=== PATIENT | female | born 1955 | race American Indian/Alaskan Native ===

== ENCOUNTER 2017-12-05 07:26 | Day surgery (SDC) | payer BC ==
[2017-12-05] MEDS ORDERED: NACL BACTERIOSTATIC INFILTRATI ONE (09:03)
--- NOTE | 2017-12-05 09:31 | Anesthesia Consultation ---
Anesthesia Consult and Med Hx - Airway Anesthetic Teeth Evaluation: Good ROM Head & Neck: Adequate Mental/Hyoid Distance: Adequate Mallampati Class: Class II Intubation Access Assessment: Probably Good - Pulmonary Exam CTA: Yes - Cardiac Exam Cardiac Exam: RRR - Pre-Operative Health Status ASA Pre-Surgery Classification: ASA3 Proposed Anesthetic Plan: MAC - Pulmonary Hx Smoking: No Hx Sleep Apnea: No (Hx of snoring) - Cardiovascular System Hx Hypertension: Yes (3 YEARS) - Central Nervous System Hx Psychiatric Problems: No - Other Systems Hx Alcohol Use: No Hx Substance Use: No Hx Cancer: Yes
--- NOTE | 2017-12-05 09:32 | Anesthesia Day of Surgery ---
Anesthesia Day of Surgery - Day of Surgery Patient Examined: Yes Patient H&P Reviewed: Yes Patient is NPO: Yes Beta Blockers: Yes Cardiac Clearance: Yes Pulmonary Clearance: Yes
[2017-12-05] MEDS ORDERED: ANCEF/STERILE WATER 2 GM/20 ML IV NR (10:00)
[2017-12-05] MEDS ORDERED: LACTATED RINGERS 1,000 ML IV SCH (10:00)
[2017-12-05] MEDS ORDERED: NACL 0.9% 100 ML ONE (11:50)
[2017-12-05] MEDS ORDERED: MARCAINE 0.25% INFILTRATI ONE ×4 (11:50→12:30)
[2017-12-05] MEDS ORDERED: HEPARIN 10,000 UNITS/10 ML ONE (11:50)
[2017-12-05] MEDS ORDERED: XYLOCAINE 1% 20 mL ONE (11:50)
[2017-12-05] MEDS ORDERED: XYLOCAINE MPF 2% ONE (11:55)
[2017-12-05] MEDS ORDERED: DIPRIVAN 10 MG/ML IV ONE ×2 (11:56→12:26)
[2017-12-05] MEDS ORDERED: VERSED ONE (11:57)
[2017-12-05] MEDS ORDERED: DILAUDID ONE (12:01)
[2017-12-05] MEDS ORDERED: XYLOCAINE 1% 20 mL INFILTRATI ONE ×3 (12:30)
[2017-12-05] MEDS ORDERED: NACL 0.9% IV ONE (12:35)
[2017-12-05] MEDS ORDERED: HEPARIN 10,000 UNITS/10 ML IV ONE ×2 (12:35→13:08)
--- NOTE | 2017-12-05 13:35 | Short Stay Summary ---
Short Stay Documentation Date of service: 12/05/17 Narrative H&P: 62 yo F referred by Dr. Case for L breast ca with positive axillary lymph node. She sees Dr. Reardon for oncology and is due to start chemotherapy in 1 week. She is here for a port placement. - History Principal diagnosis: left breast cancer H&P: obtained from office - Allergies and Medications Current Medications: Allergies No Known Allergies Allergy (Verified 12/04/17 10:51) Home Medications Medication Instructions Recorded Confirmed Last Taken Type Amlodipine Besylate [Norvasc] 10 mg PO DAILY 12/04/17 12/05/17 12/04/17 History Apixaban [Eliquis] 5 mg PO BID 12/04/17 12/05/17 12/02/17 History Carvedilol [Coreg] 25 mg PO BID 12/04/17 12/05/17 12/04/17 History Active Medications Lactated Ringer's (Lactated Ringers) 1,000 mls @ 42 mls/hr IV DIRECT ROGER Last Admin: 12/05/17 09:58 Dose: 42 mls/hr - Brief post op/procedure progress note Date of procedure: 12/05/17 Pre-op diagnosis: left breast cancer Post-op diagnosis: same Procedure: R IJ port a cath placement with ultrasound guidance Anesthesia: MAC, local Findings: good placement of port on post op CXR, no PTX Surgeon: ABIEL EL Estimated blood loss: minimal Pathology: none Condition: stable - Hospital course Hospital course: The patient was observed in the recovery room and discharged to home in stable condition once criteria met. - Disposition Condition at discharge: Good Disposition: DC-01 TO HOME OR SELFCARE Short Stay Discharge Plan Activity: no restrictions Diet: regular Wound: open to air, other (May shower tomorrow, pat incisions dry, do not scrub. Do not submerge incisions in pools, hottubs, baths.) Additional Instructions: Call Surgeon's office if you have temp >100.4, pain not controlled with pain medications, bleeding or drainage from incisions. Start Eliquis on 12/07/[address] El in 2 weeks, MondayDec 19 at [facility] office (call for appointment) Follow up with: JUAN FRANCISCO BARNES MD [Primary Care Provider] - 7 Days TOSHA LAINEZ MD [Staff Physician] - 7 Days ADAMS CASE MD [Staff Physician] - 7 Days ABIEL EL DO [Staff Physician] - 14 Days Prescriptions: HYDROcodone/ACETAMINOPHEN [[place] 5-325 Tablet] 1 each PO Q6H PRN #20 tablet PRN Reason: Pain
--- NOTE | 2017-12-05 14:00 | Fluoroscopy Report ---
AP CHEST: HISTORY: [id number] insertion A right IJ [id number]-Tmbm has been inserted which terminates at the cavoatrial junction. AP view of the chest demonstrates a normal mediastinal and cardiac contour with clear lungs and normal bony and soft tissue structures. IMPRESSION: Unremarkable AP chest. [id number] placement as described. No pneumothorax.
[2017-12-05 14:27] VITALS: BP 158/91
--- NOTE | 2017-12-05 14:49 | Operative Report ---
Operative Report Operative Report: Date of operation: 12/05/17 Preoperative diagnosis: Left breast cancer Postoperative diagnosis: Same as above Procedure performed: Placement of right internal jugular Port-A-Cath Surgeon: Yoan Ramirez DO Anesthesia: MAC, local Findings: On intraoperative CXR - good placement of port and no PTX EBL: <10cc Complications: none Disposition: stable to PACU HPI and indication: Patient is a 62-year-old -Greek female who was diagnosed with left-sided breast cancer with positive lymph node by Dr. Case.. The patient is seen by Dr. Galss-olive and deemed a candidate for chemotherapy. All of the risks associated with the procedure were discussed with the patient including but not limited to pneumothorax, infection, bleeding , malpositioned port, injury to other structures. The patient understands and all questions were answered. Consent was signed and placed on chart. Procedure in detail: The patient was identified in the preoperative area, taken back to operating room, placed on operating table in supine position. After anesthesia was induced both arms were tucked and upper chest and neck were prepped and draped in usual sterile fashion. A timeout was performed. The was placed in Trendelenburg position. Local anesthetic was infiltrated into the skin at the intended puncture site. The right internal jugular vein was visualized using the ultrasound was then accessed on the first stick. There was return of dark red, nonpulsatile blood. The wire was threaded under fluoroscopy without resistance and positioning confirmed. The needle was then removed. Using a 15 blade, an incision was made in the right upper chest and dissection carried down through the skin and subcutaneous tissue using Bovie electrocautery. Hemostasis was achieved along the way. A pocket for the port was then created bluntly. The catheter was flushed and tunneled from the pocket to the wire. A breakaway catheter/dilator sheath then inserted over the wire under fluoroscopy, and the wire and dilator removed. The catheter was then inserted through the breakaway catheter which was then removed. The catheter sat flush under the skin. Using continuous fluoroscopy, the catheter was pulled back until the tip was visualized in the right atrium. The catheter was then cut to size and the port attached in the usual fashion. The port was then sutured into place using 2-0 Vicryl interrupted sutures. The wound was irrigated and hemostasis ensured. The port was tested with heparinized saline and there was return of blood and it flushed easily. The port was then instilled with 3000 units of straight heparin. The deep dermal layer was then closed with interrupted 3-0 Vicryl stitches. The skin incisions were closed with 4-0 Monocryl subcuticular stitches and skin glue. Intraoperative chest x-ray did show good positioning of the port, without evidence of pneumothorax At the end of the case, all sponge, instrument, sharp counts were correct 2. The patient was awoken from anesthesia and taken to PACU in stable condition.
== END 2017-12-05 07:27 | disposition home or self-care (01) ==
LOC: OR 07:26
PROVIDERS: ATTEND Surgery
DX: C50.912 Malignant neoplasm of unspecified site of left female breast (principal); I10 Essential (primary) hypertension; M17.0 Bilateral primary osteoarthritis of knee; Z98.890 Other specified postprocedural states; Z68.35 Body mass index [BMI] 35.0-35.9, adult; E66.01 Morbid (severe) obesity due to excess calories
CPT/HCPCS: 36561; 77001; C1788; J0690; J1170; J1644; J2250; J2704; J7120

== ENCOUNTER 2018-05-22 09:14 | Outpatient (CLI) | payer BC ==
--- NOTE | 2018-05-22 12:06 | Mammography Report ---
LEFT DIGITAL DIAGNOSTIC MAMMOGRAM : 05/22/18 09:14:00 CLINICAL: Followup left breast cancer after chemotherapy. The cancer was diagnosed in a left axillary lymph node with an otherwise negative left breast. COMPARISON:11/03/17 FINDINGS: The breast is almost entirely fatty.No mass, architectural distortion or suspicious calcifications. Previously enlarged left axillary lymph nodes have decreased significantly in size. A lymph node with an adjacent biopsy clip measures 1.8 cm and it measured at least 2.8 cm on the last exam. IMPRESSION: Positive response to therapy with decrease size of left axillary lymph nodes. The left breast remains otherwise negative. BI-RADS CATEGORY: 6--Known Cancer RECOMMENDATION: Bilateral mammogram in six months when she is due for screening of the right breast.. ACR BI-RADS MAMMOGRAPHIC CODES: 0 = Needs additional imaging evaluation; 1 = Negative; 2 = Benign; 3 = Probably benign; 4 = Suspicious; 5 = Malignant; 6 = Known biopsy-proven malignancy COMMENT: 1. Dense breast tissue, i.e., adenosis, fibrocystic changes, etc., may obscure an underlying neoplasm. 2. Approximately 10% of cancers are not detected with mammography. 3. A negative mammography report should not delay biopsy if a clinically suspicious mass is present. COMMENT: Patient follow-up letters are generated by our [employer] application.
== END 2018-05-22 09:15 | disposition home or self-care (01) ==
LOC: SPVWC 09:14
PROVIDERS: ATTEND Surgery
DX: C50.912 Malignant neoplasm of unspecified site of left female breast (principal); G47.30 Sleep apnea, unspecified; I10 Essential (primary) hypertension; M19.90 Unspecified osteoarthritis, unspecified site

== ENCOUNTER 2018-06-06 08:00 | Inpatient (IN) | payer BC ==
[~2018-06-06 08:00] MED LIST: LACTATED RINGERS 1,000 ML IV SCH; NACL 0.9% IR ONE; NEURONTIN PO NR; VERSED IV NR
[2018-06-06] MEDS ORDERED: DILAUDID IV PRN ×4 (09:11→20:00)
[2018-06-06] MEDS ORDERED: ZOFRAN IV PRN ×3 (09:11→19:19)
--- NOTE | 2018-06-06 09:11 | Anesthesia Day of Surgery ---
Anesthesia Day of Surgery - Day of Surgery Patient Examined: Yes Patient H&P Reviewed: Yes Patient is NPO: Yes
--- NOTE | 2018-06-06 09:11 | Anesthesia Consultation ---
Anesthesia Consult and Med Hx Date of service: 06/06/18 - Airway Anesthetic Teeth Evaluation: Good, Edentulous ROM Head & Neck: Adequate Mental/Hyoid Distance: Adequate Mallampati Class: Class II Intubation Access Assessment: Probably Good - Pulmonary Exam CTA: Yes - Cardiac Exam Cardiac Exam: RRR - Pre-Operative Health Status ASA Pre-Surgery Classification: ASA2 Proposed Anesthetic Plan: General - Pulmonary Hx Smoking: No Hx Sleep Apnea: No (Hx of snoring) - Cardiovascular System Hx Hypertension: Yes (3 YEARS) - Central Nervous System Hx Psychiatric Problems: No - Other Systems Hx Alcohol Use: No Hx Substance Use: No Hx Cancer: Yes
[2018-06-06] MEDS ORDERED: SUBLIMAZE ONE ×2 (09:52→19:01)
[2018-06-06] MEDS ORDERED: MARCAINE 0.5% 60 ML INFILTRATI ONE (09:53)
[2018-06-06] MEDS ORDERED: XYLOCAINE MPF 2% ONE (10:50)
[2018-06-06] MEDS ORDERED: DILAUDID ONE ×2 (10:50→20:02)
[2018-06-06] MEDS ORDERED: ZEMURON IV ONE (10:50)
[2018-06-06] MEDS ORDERED: DIPRIVAN 10 MG/ML IV ONE (10:51)
[2018-06-06] MEDS ORDERED: LACTATED RINGERS 1,000 ML IV SCH (11:00)
--- NOTE | 2018-06-06 12:14 | History and Physical Report ---
History of Present Illness Date of examination: 06/06/18 Chief complaint: Left breast cancer History of present illness: 62 year old female presents with referral from breast surgery for reconstruction after planned bilateral mastectomy. She has multiple medical comorbities to consider which will affect her reconstructive choice. The patient desires bilateral mastectomy and bilateral reconstruction. Past History Past Medical History: cancer, DVT, hypertension, other (abdominal aortic aneurysm) Social history: lives with family, full code Family history: diabetes, hypertension Medications and Allergies Allergies Allergy/AdvReac Type Severity Reaction Status Date / Time No Known Allergies Allergy Verified 06/01/18 14:56 Home Medications Medication Instructions Recorded Confirmed Last Taken Type Amlodipine Besylate [Norvasc] 10 mg PO DAILY 12/04/17 06/01/18 12/04/17 History Apixaban [Eliquis] 5 mg PO BID 12/04/17 06/01/18 12/02/17 History Carvedilol [Coreg] 25 mg PO BID 12/04/17 06/01/18 12/04/17 History HYDROcodone/ACETAMINOPHEN [[place] 1 each PO Q6H PRN #20 tablet 12/05/17 06/01/18 Unknown Rx 5-325 Tablet] Gabapentin [Neurontin] 300 mg PO Q8HR 06/01/18 06/01/18 Unknown History Active Meds: Active Medications Celecoxib (Celebrex) 200 mg PO PREOP NR Stop: 06/06/18 19:00 Gabapentin (Neurontin) 300 mg PO PREOP NR Stop: 06/06/18 19:00 Hydromorphone HCl (Dilaudid) 0.5 mg IV Q10MIN PRN PRN Reason: Pain , Severe (7-10) Stop: 06/06/18 14:00 Lactated Ringer's (Lactated Ringers) 1,000 mls @ 150 mls/hr IV DIRECT ROGER Midazolam HCl (Versed) 2 mg IV PREOP NR Stop: 06/06/18 23:59 Ondansetron HCl (Zofran) 4 mg IV ONCE PRN PRN Reason: Nausea And Vomiting Stop: 06/06/18 13:00 Review of Systems All systems: negative - Constitutional chronic pain - Breasts left: other (Left breast cancer) Exam - General physical appearance Positive: well developed, no distress, obese - Eyes Positive: other (Right eye subconjunctival hemorrhage, stable.) - ENT Positive: normal pinna, normal nares, normal mucosa - Neck Positive: no masses - Respiratory Positive: normal respiratory effort - Cardiovascular Rhythm: regular Heart Sounds: Present: S1 & S2 - Extremities Extremities: no ischemia Extremity abnormal: edema Peripheral Pulses: within normal limits - Breasts Breasts: other (Bilateral macromastia) - Abdomen Abdomen: Present: soft, distended Hernia: other (Not palpable) - Genitourinary Female Genitourinary: deferred - Integumentary no rash - Neurologic Neurologic: alert and oriented to time, place and person, motor strength and sensation are grossly intact - Musculoskeletal other (Walks with a walker.) - Psychiatric Psychiatric: appropriate mood/affect Assessment and Plan 62 year old female with left breast cancer planned for bilateral mastectomy with left SLN Biopsy. Plan also for bilateral immediate reconstruction with tissue applications systems engineer and Flex HD placement. Admit for overnight observation. Home medications reviewed, patient reports that she has stopped Eliquis and is not taking any blood thinner. - Patient Problems (1) Breast cancer, left breast Current Visit: Yes Status: Acute Qualifiers: Patient sex: female
[2018-06-06] MEDS ORDERED: METHYLENE BLUE ONE (12:49)
[2018-06-06] MEDS ORDERED: NEOSPORIN GU IR ONE ×3 (12:55→15:41)
[2018-06-06] MEDS ORDERED: ANCEF ONE ×2 (12:55→18:23)
[2018-06-06] MEDS ORDERED: GARAMYCIN ONE ×2 (12:55→15:40)
[2018-06-06] MEDS ORDERED: ANCEF/STERILE WATER 2 GM/20 ML 2 GM/20 ML SYRINGE IV NR (13:00)
[2018-06-06] MEDS ORDERED: ePHEDrine 50 MG/5 ML-0.9% NACL IV ONE (13:10)
--- NOTE | 2018-06-06 13:21 | Operative Report ---
Operative Report Operative Report: Date of Service: June 06, 2018 Preoperative diagnosis: Left breast cancer of unknown primary origin with left axillary willy metastasis Postoperative diagnosis: Same Procedure: Right total mastectomy and left total mastectomy with sentinel lymph node biopsy Surgeon: Karla Case M.D. Asst.: Ashanti Dai MD Anesthesia: Gen. Findings: 3 sentinel lymph nodes identified and negative for malignancy on frozen section of pathology Complications: None Drains: per Plastic Surgery Estimated blood loss: Minimal Disposition: PACU in good condition Indications for operative procedure: This is a 62-year-old lady with left breast cancer of unknown primary origin with left axillary willy metastasis, triple negative with breast primary. She was started on neoadjuvant chemotherapy and completed AC and partially completed Taxol. Medical oncology's recommendations to proceed with surgery given patient was not tolerating chemotherapy. She has a known AAA and cleared by vascular surgery to do breast surgery first, vascular surgery will not operate on known breast cancer until treated. PET prior to chemotherapy with left axillary willy metastasis and follow-up PET with no abnormal appearing axillary lymph nodes. At diagnosis, no primary breast cancer found except for left axillary willy involvement. Patient diagnosed after CT scan showed abnormal left axillary lymph nodes, history of PE and treated with Eloquis that was held for 48 hours for surgery-cleared by hematology oncology. She wished to proceed with a bilateral mastectomy and agreed to the above procedure of right mastectomy, left total mastectomy with SLNB and possible ALND. She wished to proceed with plastic reconstructive surgery of bilateral tissue quotation checker placement. Procedure in detail: Anesthesia placed a bilateral pectoral muscle block prior to going to the operating room. The patient was taken to the operating room and was placed supine. Gen. anesthesia was administered. The left nipple was injected with radioisotope and 1 cc of methylene blue mixed with 1 cc of saline. Mastectomy incision markings were made. Timeout was performed. Attention was taken towards the right breast first. A skin incision was made with a 10 blade knife and dissection taken down to the subcutaneous tissues. First began raising of the superior flap to the level of the clavicle superiorly and posteriorly to the pectoralis muscle. Followed by raising of the medial flap to the level of the sternum and posteriorly to the pectoralis muscle. Followed by raising of the lateral flap to the level of the latissimus dorsi muscle and taken down posteriorly. Followed by raising of the inferior flap to the level of the inframammary fold taken posterior to the pectoralis muscle. The mastectomy/breast was removed from the pectoralis muscle without incident. The specimen was appropriately marked and sent to pathology. Hemostasis was obtained with the bovie cautery. Care was taken not harm the port. Attention was taken towards the left breast. A gamma probe was inserted into the axilla to identify the sentinel lymph node location. A skin incision was made with a 10 blade knife and dissection taken down to the subcutaneous tissues. First began raising of the superior flap to the level of the clavicle superiorly and posteriorly to the pectoralis muscle. Followed by raising of the medial flap to the level of the sternum and posteriorly to the pectoralis muscle. Followed by raising of the lateral flap to the level of the latissimus dorsi muscle and taken down posteriorly. The gamma probe was inserted into the axilla, axillary fascia was opended, 3 sentinel lymph nodes were identified, all remaining counts were less than 10% of the highest SLN. Lymph nodes were noted to be fibrotic with reactive tissue. Lymph nodes were sent to pathology with findings negative for malignancy noted on frozen section. Then proceeded with raising of the inferior flap to the level of the inframammary fold taken posterior to the pectoralis muscle. The mastectomy/breast was removed from the pectoralis muscle without incident. The specimen was appropriately marked and sent to pathology. Hemostasis was obtained with the bovie cautery. Dr. Camacho then proceeded with bilateral tissue quotation checker placement. She was doing well.
[2018-06-06] MEDS ORDERED: XYLOCAINE 1%/ EPI 1:100,000 INFILTRATI ONE (14:24)
[2018-06-06] MEDS ORDERED: NACL 0.9% 1000 ML 1,000 ML ONE (14:54)
[2018-06-06] MEDS ORDERED: ANCEF IV ONE (15:30)
[2018-06-06] MEDS ORDERED: GARAMYCIN IV ONE (15:30)
[2018-06-06] MEDS ORDERED: BACITRACIN ONE (15:41)
[2018-06-06] MEDS ORDERED: DECADRON ONE (16:41)
[2018-06-06] MEDS ORDERED: BLOXIVERZ ONE (18:23)
[2018-06-06] MEDS ORDERED: ROBINUL ONE (18:23)
[2018-06-06] MEDS ORDERED: NARCAN 0.4 MG/1 ML IV PRN (19:19)
[2018-06-06] MEDS ORDERED: NORCO 5/325 PO PRN (19:19)
[2018-06-06] MEDS ORDERED: TYLENOL PO PRN (19:19)
[2018-06-06] MEDS: DILAUDID IV PRN ×2 (20:00→20:20)
[2018-06-06 20:14] LABS: Basophils # (Auto) 0.1 K/mm3 (0.0-0.1); Basophils % (Auto) 0.7 % (0.0-1.8); Eosinophils # (Auto) 0.1 K/mm3 (0.0-0.4); Eosinophils % (Auto) 1.4 % (0.0-4.3); Hematocrit 34.9 % (30.3-42.9); Hemoglobin 11.3 gm/dl (10.1-14.3); Lymphocytes # (Auto) 1.2 K/mm3 (1.2-5.4); Lymphocytes % (Auto) 14.3 % (13.4-35.0); Mean Corpuscular HGB Conc 32 % (30-34); Mean Corpuscular Hemoglobin 30 pg (28-32); Mean Corpuscular Volume 92 fl (79-97); Monocytes # (Auto) 0.7 K/mm3 (0.0-0.8); Monocytes % (Auto) 8.6 % (0.0-7.3); Platelet Count 212 K/mm3 (140-440); Red Cell Distribution Width 17.3 % (13.2-15.2)
[2018-06-06] MEDS: APRESOLINE IV PRN ×2 (20:28→21:41)
[2018-06-06 20:35] LABS: BUN/Creatinine Ratio 15; Blood Urea Nitrogen 12 mg/dL (7-17); Calcium 9.1 mg/dL (8.4-10.2); Hemolysis Index 0
[2018-06-06] MEDS: MORPHINE IV PRN (21:15)
[2018-06-06] MEDS ORDERED: NITROSTAT SL PRN (21:24)
[2018-06-06] MEDS ORDERED: TORADOL IV PRN (21:25)
[2018-06-06] MEDS: LACTATED RINGERS 1,000 ML IV SCH (22:14)
[2018-06-06] MEDS: COREG PO SCH (23:50)
[2018-06-06] MEDS: NEURONTIN PO SCH (23:55)
[2018-06-06] MEDS: ANCEF/NS 1 GM/50 ML 1 GM/50 ML BAG IV SCH (23:55)
[2018-06-07] MEDS: ANCEF/NS 1 GM/50 ML 1 GM/50 ML BAG IV SCH ×2 (04:00→15:00)
[2018-06-07] MEDS: MORPHINE IV PRN ×2 (08:25→12:18)
[2018-06-07] MEDS ORDERED: NORVASC PO SCH (10:00)
[2018-06-07] MEDS ORDERED: ROBAXIN PO PRN (14:51)
[2018-06-07] MEDS: LACTATED RINGERS 1,000 ML IV SCH (15:16)
[2018-06-07] MEDS: COREG PO SCH (15:17)
[2018-06-07] MEDS: NEURONTIN PO SCH (15:17)
[2018-06-07 15:18] VITALS: BP 152/78
--- NOTE | 2018-06-08 13:56 | Vascular Lab Report ---
Aortic duplex Reason for exam: Infrarenal abdominal aortic aneurysm Comments: The aorta appears to be patent with mild atherosclerotic changes. The proximal aorta appears to be dilated above the renal arteries but an accurate size measurement could not be obtained on this study. The infrarenal abdominal aorta has maximum diameter of 6.44 cm. This finding is consistent with an aneurysm. The celiac artery is patent with normal flow velocities. Superior mesenteric artery is patent with normal flow velocities. The right common iliac artery is of normal diameter with a normal flow velocity. The left common iliac artery is normal diameter with a normal flow velocity. Impression: 1. 6.4 cm infrarenal abdominal aortic aneurysm. 2. Evidence of dilation of the aorta above the renal arteries of unknown magnitude. Recommend further evaluation with CT scan. Consider vascular surgery consult.
== END 2018-06-07 18:36 | disposition home or self-care (01) | DRG 580 ==
LOC: EDSTATUS 08:00 → 3A 09:00 → OR 09:00 → 4A 22:47
PROVIDERS: ADMIT Surgery; ATTEND Surgery
PROC: 07B60ZX Excision of Left Axillary Lymphatic, Open Approach, Diagnostic (ICD-10-PCS; principal; 2018-06-06)
PROC: 0HTV0ZZ Resection of Bilateral Breast, Open Approach (ICD-10-PCS; 2018-06-06)
PROC: 0HHV0NZ Insertion of Tissue Expander into Bilateral Breast, Open Approach (ICD-10-PCS; 2018-06-06)
PROC: 07B50ZX Excision of Right Axillary Lymphatic, Open Approach, Diagnostic (ICD-10-PCS; 2018-06-06)
DX: C50.612 Malignant neoplasm of axillary tail of left female breast (principal); Z68.44 Body mass index [BMI] 60.0-69.9, adult; I10 Essential (primary) hypertension; E66.9 Obesity, unspecified; R31.9 Hematuria, unspecified; G47.00 Insomnia, unspecified; I71.4 Abdominal aortic aneurysm, without rupture; Z86.718 Personal history of other venous thrombosis and embolism; Z82.49 Family history of ischemic heart disease and other diseases of the circulatory system; Z83.3 Family history of diabetes mellitus; B02.9 Zoster without complications
CPT/HCPCS: 36415; 64450; 78800; 80048; 84484; 85025; 88305; 88307; 88309; 88331; 88333; 88342; 93005; 93010; 93979; A9541; C1789; J0360; J0690; J1100; J1170; J1580; J1885; J2250; J2270; J2704; J2710; J3010; J7030; J7120; Q4128; Q9968

== ENCOUNTER 2020-10-23 11:07 | Day surgery (SDC) | payer BC, MEDICARE ==
[2020-10-23] MEDS ORDERED: LIDOCAINE (1%) 10 MG/1 ML VIAL 20 ML MDV ONE (12:03)
[2020-10-23] MEDS ORDERED: BUPIVACAINE/PF (0.5%) 5 MG/1 ML 30 ML VIAL INFILTRATI ONE ×2 (12:03→12:20)
[2020-10-23] MEDS ORDERED: LIDOCAINE (1%) 10 MG/1 ML VIAL 20 ML MDV INFILTRATI ONE (12:20)
[2020-10-23 12:53] VITALS: BP 135/87
--- NOTE | 2020-10-23 13:06 | Procedure Note ---
Date of procedure: 10/23/20 Pre-op diagnosis: breast cancer Post-op diagnosis: same Procedure: removal of right chest wall port a cath Findings: HPI and indication: Patient is a 64-year-old female with breast cancer who underwent port placement and chemotherapy. She is completed her chemotherapy treatment and port cannot be removed. All risk, benefits, alternatives to port removal were discussed with the patient and questions answered. Consent was obtained. Patient identified and positioned on stretcher in supine position. The RIGHT anterior chest was prepped and draped in usual sterile fashion a timeout performed. Local anesthetic infiltrated to skin and subcutaneous tissue at the intended incision site at the old scar. Using a 15 blade an incision was made through the old scar and subcutaneous tissue. Dissection was carried down through skin and subcutaneous tissue using blunt dissection with a hemostat. The catheter was identified and grasped between 2 hemostats. The catheter was cut in between the hemostats using Metzenbaum scissors. The catheter was removed without difficulty and pressure held at the site for 5 minutes. The subcutaneous port was then dissected free from the capsule using a blunt dissection with a hemostat. The port was then removed from the wound and both parts were passed off the table as a specimen for identification purposes. The wound was irrigated and hemostasis very carefully ensured. The deep dermal layer was then closed with interrupted 3-0 Vicryl stitches. The skin was approximated using 4-0 Monocryl subcuticular running stitch. Skin glue was applied. The incision was then covered with a 4 x 4 gauze and Tegaderm. At the end of the case, all sponge, instrument, sharp counts were correct x2. The patient tolerated the procedure well and was discharged to home in stable condition Anesthesia: local Surgeon: ABIEL EL Estimated blood loss: minimal Pathology: list (port and catheter) Specimen disposition: to lab Condition: stable Disposition: other (HOME)
== END 2020-10-23 12:40 | disposition home or self-care (01) ==
LOC: OR 11:07
PROVIDERS: ATTEND Surgery
DX: Z45.2 Encounter for adjustment and management of vascular access device (principal); C50.912 Malignant neoplasm of unspecified site of left female breast; I10 Essential (primary) hypertension; M19.90 Unspecified osteoarthritis, unspecified site; Z90.13 Acquired absence of bilateral breasts and nipples; Z79.899 Other long term (current) drug therapy; Z98.890 Other specified postprocedural states; Z86.711 Personal history of pulmonary embolism
CPT/HCPCS: 88302

== ENCOUNTER 2020-10-26 13:29 | Outpatient (CLI) | payer BC, MEDICARE | END 2020-10-26 13:30 | disposition home or self-care (01) | LOC: WOUND 13:29 | PROVIDERS: ATTEND Surgery | DX: T81.89XA Other complications of procedures, not elsewhere classified, initial encounter (principal); L02.213 Cutaneous abscess of chest wall; I10 Essential (primary) hypertension; M19.90 Unspecified osteoarthritis, unspecified site; Z90.13 Acquired absence of bilateral breasts and nipples; Y83.8 Other surgical procedures as the cause of abnormal reaction of the patient, or of later complication, without mention of misadventure at the time of the procedure; Y92.238 Other place in hospital as the place of occurrence of the external cause | CPT/HCPCS: 99215; G0463 ==